=== PATIENT | female | born 1985 | race Caucasian/White ===

== ENCOUNTER → 2024-08-24 | Outpatient (CLI) | payer OTHER ==
[~2024-08-24] MED LIST: BUSP5; CITA20 PO; IBUP800 PO; LORA2 PO; Norco 5-325 Ta1 EACH PO; OXYACE5T PO; OXYACE7.5T PO; PRED20 PO; PROM25 PO; Percocet 2.5-31 EACH PO; Pindolol5 MG; Verotin-Gr Cap1 EACH PO
[2024-09-05 18:54] LABS: HPV HIGH RISK BY TMA Not Detected; HPV SOURCE Cervical
== END ==
LOC: LAB SHORT 16:44 → LAB 16:44
PROVIDERS: Registered Nurse
DX: Z01.419 Encounter for gynecological examination (general) (routine) without abnormal findings (principal)
CPT/HCPCS: 87624; G0123